=== PATIENT | female | born 1950 | race Caucasian/White ===

== ENCOUNTER 2017-07-24 02:45 | Emergency (ER) | payer MEDICARE, BC ==
[~2017-07-24] VITALS: Ht 175.3 cm; Wt 68.9 kg
--- NOTE | 2017-07-24 03:18 | NUR ---
PT BIBSELF PT STATES "HAS SOME WINE AND WENT TO BED; WOKE UP SWEATY" PT AOX3 RR EVEN AND UNLABORED. NO SOB NOTED. NAD NOTED. NO NVD AT THIS TIME. PT GOWNED AND PLACED ON MONITOR . PT NOT DIAPHORETIC. PT WAITING FOR MD FULTON.
--- NOTE | 2017-07-24 03:19 | NUR ---
PT BS NOTED AT 50. PER MD, PT PROVIDED WITH OJ AND A SANDWICH.
--- NOTE | 2017-07-24 03:32 | NUR ---
LAB AT BEDSIDE FOR BLOOD DRAW
--- NOTE | 2017-07-24 03:47 | NUR ---
XRAY AT BEDSIDE
--- NOTE | 2017-07-24 03:57 | NUR ---
PT STATES " I FEEL BETTER AFTER EATING" DR. WU MADE AWARE
[2017-07-24 04:04] LABS: BASOPHILS % (AUTO) 0.8 % (0.0-2.0); EOSINOPHILS # (AUTO) 0.1 /CMM (0.0-0.7); EOSINOPHILS % (AUTO) 1.6 % (0.0-6.0); HEMATOCRIT 40 % (33-45); HEMOGLOBIN 12.8 g/dL (11.5-14.8); LYMPHOCYTES # (AUTO) 1.2 /CMM (0.8-4.8); LYMPHOCYTES % (AUTO) 22.2 % (20.0-44.0); MEAN CORPUSCULAR HEMOGLOBIN 29 PG (26.0-33.0); MEAN CORPUSCULAR HGB CONC 33 g/dl (31.0-36.0); MEAN CORPUSCULAR VOLUME 89 fL (82-100); MONOCYTES # (AUTO) 0.4 /CMM (0.1-1.30); MONOCYTES % (AUTO) 7.5 % (2.0-12.0); NEUTROPHILS # (AUTO) 3.8 /CMM (1.8-8.9); NEUTROPHILS % (AUTO) 67.9 % (43.0-81.0); PLATELET COUNT (AUTO) 227 /CMM (150-450); RDW COEFFICIENT OF VARIATION 13.1 (11.5-15.0); RED BLOOD CELL COUNT(AUTO) 4.45 MIL/uL (4.0-5.2); WHITE BLOOD COUNT (AUTO) 5.5 K/uL (4.3-11.0)
--- NOTE | 2017-07-24 04:11 | NUR ---
URINE COLLECTED. CALLED LAB FOR VALIDATION SCIENTIST.
[2017-07-24 04:13] LABS: CALCIUM, SERUM 8.8 mg/dL (8.5-10.1); CREATININE 0.8 mg/dL (0.6-1.3)
[2017-07-24 04:50] LABS: APPEARANCE,URINE CLEAR (CLEAR); BILIRUBIN,URINE NEGATIVE (NEGATIVE); BLOOD, URINE TRACE-INTA Ery/uL (NEGATIVE); COLOR,URINE YELLOW (YELLOW); KETONES,URINE NEGATIVE (NEGATIVE); LEUKOCYTE ESTERASE ,URINE NEGATIVE (NEGATIVE); NITRITE, URINE NEGATIVE (NEGATIVE); PROTEIN,URINE NEGATIVE (NEGATIVE); UGLUCOSE NEGATIVE (NEGATIVE); UROBILINOGEN,URINE 0.2 EU/dL (0.2)
--- NOTE | 2017-07-24 05:01 | NUR ---
Patient discharged to home in stable condition. Written and verbal after care instructions given. Patient verbalizes understanding of instruction. ambulatory with a steady gait
[2017-07-24 05:02] VITALS: BP 123/70
[2017-07-24 05:32] LABS: BACTERIA,URINE 3+ /HPF (None Seen); RBC,URINE 0-2 /HPF (0-2); SQUAMOUS EPITHELIAL CELL,UR Many /HPF (None Seen); WBC,URINE 0-2 /HPF (0-3)
== END 2017-07-24 05:04 | disposition home or self-care (01) ==
LOC: ER 02:45
DX: E16.2 Hypoglycemia, unspecified (principal); G89.29 Other chronic pain; Z88.1 Allergy status to other antibiotic agents; I70.0 Atherosclerosis of aorta; R23.1 Pallor; R61 Generalized hyperhidrosis; R78.81 Bacteremia
CPT/HCPCS: 36415; 71010-TC; 80048-TC; 81000-TC; 82962-TC; 85025-TC; 87086-TC; A4606; Z7610

== ENCOUNTER 2019-09-19 00:46 | Emergency (ER) | payer BC, MEDICARE, OTHER ==
[~2019-09-19] VITALS: Ht 170.2 cm; Wt 68.0 kg
[2019-09-19 01:30] LABS: BASOPHILS # (AUTO) 0.1 /CMM (0.0-0.2); EOSINOPHILS % (AUTO) 2.2 % (0.0-6.0); HEMATOCRIT 38 % (33-45); HEMOGLOBIN 12.3 g/dL (11.5-14.8); LYMPHOCYTES # (AUTO) 1.6 /CMM (0.8-4.8); LYMPHOCYTES % (AUTO) 25.6 % (20.0-44.0); MEAN CORPUSCULAR HGB CONC 33 g/dl (31.0-36.0); MEAN CORPUSCULAR VOLUME 93 fL (82-100); MONOCYTES # (AUTO) 0.5 /CMM (0.1-1.30); NEUTROPHILS # (AUTO) 3.8 /CMM (1.8-8.9); NEUTROPHILS % (AUTO) 62.2 % (43.0-81.0); PLATELET COUNT (AUTO) 240 /CMM (150-450); RED BLOOD CELL COUNT(AUTO) 4.06 MIL/uL (4.0-5.2); WHITE BLOOD COUNT (AUTO) 6.1 K/uL (4.3-11.0)
[2019-09-19] MEDS ORDERED: IV NS 0.9% 1,000 ML IV ONE (01:30)
--- NOTE | 2019-09-19 01:30 | NUR ---
BIBSELF TO ER BED 10. AAOX4. NO RESP DISTRESS NOTED, BREATHING EVEN AND UNLABORED. AMBULATORY. C/O SOB AND FEELING JITTERY. PER PT, SHE WOKE UP THIS EVENING AND FELT SOB AND JITTERY, SHE REPORTS THAT HER ENTIRE BODY IS SHAKING HOWEVER ITS GETTING LESS DURING ASSESSMENT. PT ALSO FELT SOB W/ CHEST TIGHTNESS UPON WAKING UP. PT REPORTS SHE HAD ANXIETY ATTACKS IN THE PAST BUT DOES NOT FEEL THE SAME. MD WAS AT BEDSIDE FOR EVAL. ORDERS RECEIVED, NOTED AND CARRIED OUT. IV LINE OBTAINED ON THE R AC 18G. BLOOD DRAWN AND GIVEN TO DATA WAREHOUSE SPECIALIST T ATBEDSIDE.
[2019-09-19 01:38] LABS: CALCIUM, SERUM 9.1 mg/dL (8.5-10.1); CREATININE 0.9 mg/dL (0.6-1.3)
[2019-09-19 02:16] LABS: THYROID STIMULATING HORMONE 3.79 uIU/mL (0.358-3.74)
--- NOTE | 2019-09-19 02:57 | NUR ---
Patient discharged to home in stable condition. Written and verbal after care instructions given. Patient verbalizes understanding of instruction. Pt ambulatory with a steady gait
[2019-09-19 03:04] VITALS: BP 131/73
== END 2019-09-19 03:04 | disposition home or self-care (01) ==
LOC: ER 00:48
DX: R06.00 Dyspnea, unspecified (principal); F41.9 Anxiety disorder, unspecified; G89.29 Other chronic pain; F10.10 Alcohol abuse, uncomplicated; Y90.9 Presence of alcohol in blood, level not specified; Z88.1 Allergy status to other antibiotic agents; Z98.890 Other specified postprocedural states
CPT/HCPCS: 36415; 80048; 84443; 85025; 93005; 99284; J7030

== ENCOUNTER 2021-06-05 05:31 | Emergency (ER) | payer MEDICARE ==
[~2021-06-05] VITALS: Ht 170.2 cm; Wt 72.6 kg
--- NOTE | 2021-06-05 05:46 | NUR ---
PATIENT CAME TO ER BED 3 C/O LEFT SIDED CHEST MUSCLE PAIN. PATIENT STATES THAT SHE HAD LIFTED ABOUT 40lbs OF CAT LITTER AND STARTED HAVING 2/10 CHEST PAIN SINCE THEN. PATIENT ALSO STATES THAT SHE IS ON PAIN MANAGEMENT AND THAT SHE TAKES TRAMADOL, LAST TAKEN AT 2300 OF LAST NIGHT. PATIENT IS ALERT AND ORIENTED x4. BREATHING EVENLY AND UNLABORED ON ROOM AIR. CONNECTED TO THE RESTAURANT BARTENDER.
--- NOTE | 2021-06-05 05:47 | NUR ---
BLOOD SENT TO LAB
[2021-06-05 05:52] LABS: BASOPHILS # (AUTO) 0.1 K/uL (0.0-0.2); BASOPHILS % (AUTO) 0.9 % (0.0-2.0); EOSINOPHILS % (AUTO) 0.8 % (0.0-6.0); HEMATOCRIT 42 % (33-45); HEMOGLOBIN 13.8 g/dL (11.5-14.8); LYMPHOCYTES # (AUTO) 1.8 K/uL (0.8-4.8); LYMPHOCYTES % (AUTO) 20.4 % (20.0-44.0); MEAN CORPUSCULAR HGB CONC 33 g/dl (31.0-36.0); MEAN CORPUSCULAR VOLUME 93 fL (82-100); MONOCYTES # (AUTO) 0.8 K/uL (0.1-1.30); MONOCYTES % (AUTO) 8.4 % (2.0-12.0); NEUTROPHILS # (AUTO) 6.2 K/uL (1.8-8.9); NEUTROPHILS % (AUTO) 69.5 % (43.0-81.0); PLATELET COUNT (AUTO) 218 K/uL (150-450); RED BLOOD CELL COUNT(AUTO) 4.52 MIL/uL (4.0-5.2)
--- NOTE | 2021-06-05 05:55 | NUR ---
XRAY AT BEDSIDE
[2021-06-05 06:09] LABS: CALCIUM, SERUM 8.9 mg/dL (8.5-10.1); CARBON DIOXIDE 26 mmol/L (21-32); CHLORIDE 106 mmol/L (98-107); CREATININE 0.7 mg/dL (0.6-1.3); GLUCOSE 114 mg/dL (74-106); POTASSIUM 3.7 mmol/L (3.5-5.1); SODIUM SERUM 140 mmol/L (136-145); UREA NITROGEN, BLOOD 16 mg/dL (7-18)
[2021-06-05 07:09] VITALS: BP 135/78
--- NOTE | 2021-06-05 07:09 | NUR ---
Patient discharged to home in stable condition. Written and verbal after care instructions given. Patient verbalizes understanding of instruction.
--- NOTE | 2021-06-05 07:09 | NUR ---
IV removed. Catheter intact and site benign. Pressure and 4x4 applied to site. No bleeding noted.
== END 2021-06-05 07:09 | disposition home or self-care (01) ==
LOC: ER 05:31
DX: R07.89 Other chest pain (principal); I49.8 Other specified cardiac arrhythmias; G89.29 Other chronic pain; F10.10 Alcohol abuse, uncomplicated; Y90.9 Presence of alcohol in blood, level not specified; Z98.890 Other specified postprocedural states; Z88.1 Allergy status to other antibiotic agents
CPT/HCPCS: 36415; 71045-TC; 80048-TC; 84484-TC; 85025-TC